=== PATIENT | female | born 1935 | race Caucasian/White ===

== ENCOUNTER 2017-10-08 11:57 | Emergency (ER) | payer MEDICAID ==
[~2017-10-08] VITALS: Ht 144.8 cm; Wt 46.3 kg
[2017-10-08 12:08] VITALS: BP 123/58
--- NOTE | 2017-10-08 12:19 | NUR ---
pt to lobby awaiting available room with son and in wheelchair.
--- NOTE | 2017-10-08 12:43 | NUR ---
pt brought in via w/c and taken to bed 1 at this time.
--- NOTE | 2017-10-08 12:53 | NUR ---
81 yo f bib son with c/o intermittent diarrhea x 3 weeks. Referred by pcp, Shady TREVIÑO, today for blood work. Patient marlo any abdomen pain or fevers. pt aaox4. gcs 15. cms intact. rr even and unlabored. lungs clear. abd soft, non-tender. er md garcia notified. pt needs met. safety prevautions in place. will continue to monitor.
[2017-10-08] MEDS ORDERED: NACL 0.9% 1,000 ML IV SCH (13:46)
[2017-10-08] MEDS ORDERED: MORPHINE SULFATE 2 MG/ML SYR IVP ONE (13:50)
--- NOTE | 2017-10-08 13:58 | NUR ---
pt to ct scan at this time via [facility].
[2017-10-08 14:26] LABS: BASOPHILS # (AUTO) 0.1 K/uL (0.00-0.22); BASOPHILS % (AUTO) 1.8 % (0.0-2.0); EOSINOPHILS # (AUTO) 0.1 K/uL (0-0.4); EOSINOPHILS % (AUTO) 3.8 % (0.0-4.0); HEMATOCRIT 35.2 % (36-48); HEMOGLOBIN 11.7 g/dL (12.0-16.0); LYMPHOCYTES # (AUTO) 1.5 K/uL (2.5-16.5); MEAN CORPUSCULAR HEMOGLOBIN 30 pg (27-31); MEAN CORPUSCULAR HGB CONC 33 g/dL (33-37); MEAN CORPUSCULAR VOLUME 88.8 fL (80-94); MONOCYTES # (AUTO) 0.2 K/uL (0.8-1.0); MONOCYTES % (AUTO) 5.8 % (1.7-9.3); NEUTROPHILS # (AUTO) 1.6 K/uL (1.8-7.7); NEUTROPHILS % (AUTO) 45.6 % (42.2-75.2); PLATELET COUNT (AUTO) 168 K/uL (140-450); RED BLOOD CELL COUNT(AUTO) 3.96 MIL/uL (4.20-5.40); RED CELL DISTRIBUTION WIDTH 15.5 % (11.6-13.7); WHITE BLOOD COUNT (AUTO) 3.5 K/uL (4.8-10.8)
[2017-10-08 14:40] LABS: APPEARANCE,URINE CLEAR (CLEAR); COLOR,URINE YELLOW (YELLOW); PH,URINE 5.5 (5.0-9.0); UGLUCOSE NEGATIVE (NEGATIVE)
[2017-10-08 14:41] LABS: BILIRUBIN,URINE 1+ (NEGATIVE); BLOOD, URINE TRACE (NEGATIVE); LEUKOCYTE ESTERASE ,URINE NEGATIVE (NEGATIVE); NITRITE, URINE NEGATIVE (NEGATIVE)
--- NOTE | 2017-10-08 14:59 | NUR ---
pt resting comfortably in [facility] at this time. Son and DTR at bedside at this time. safety precautions in place. vss. will continue to monitor.
[2017-10-08 15:00] LABS: RBC,URINE 0-5 (RARE) /HPF (0-5); WBC,URINE 0-5 (RARE) /HPF (0-5)
[2017-10-08 15:00] LABS: CARBON DIOXIDE 28.3 mmol/L (21-32); CHLORIDE 104 mmol/L (98-107); POTASSIUM 4.3 mmol/L (3.5-5.1); SODIUM SERUM 139 mmol/L (136-145)
[2017-10-08 15:01] LABS: ASPARTATE AMINOTRANSFERASE 20 U/L (15-37); CREATININE 0.9 mg/dL (0.6-1.3); GLUCOSE 92 mg/dL (74-106); TOTAL BILIRUBIN 0.9 mg/dL (0.0-1.0); UREA NITROGEN, BLOOD 22 mg/dL (7-18)
[2017-10-08 15:02] LABS: ALBUMIN 3.8 g/dL (3.4-5.0); AMYLASE 62 U/L (25-115); LIPASE 62 U/L (73-393)
--- NOTE | 2017-10-08 15:41 | NUR ---
pt resting in [facility] at this time PARISH Vogel at bedside attempting to insert IV. Safety precautions in place. Pt to receive IV meds at this time.
--- NOTE | 2017-10-08 16:00 | NUR ---
pt resting in hospital [facility] at this time. vss. rr even and unlabored. family at bedside. safety precautions in place. will continue to monitor.
[2017-10-08 17:53] VITALS: BP 121/63
--- NOTE | 2017-10-08 17:53 | NUR ---
Patient discharged with v/s stable. Written and verbal after care instructions given and explained. Patient alert, oriented and verbalized understanding of instructions. Wheel Chair Assisted with by caregiver. All questions addressed prior to discharge. ID band removed. Patient advised to follow up with PMD. Rx of Lactulose given. Patient educated on indication of medication including possible reaction and side effects. Opportunity to ask questions provided and answered.
== END 2017-10-08 17:53 | disposition home or self-care (01) ==
LOC: MED 11:57
DX: E86.0 Dehydration (principal); K56.41 Fecal impaction; R19.7 Diarrhea, unspecified; K59.8 Other specified functional intestinal disorders; F99 Mental disorder, not otherwise specified
CPT/HCPCS: 36415; 74176; 76705; 80053; 81001; 82150; 83690; 85025; 96361; 96374; 99285; J2270; J7030; Q0092

== ENCOUNTER 2018-01-02 13:03 | Emergency (ER) | payer MEDICAID ==
[~2018-01-02] VITALS: Ht 144.8 cm; Wt 46.3 kg
[2018-01-02 13:15] VITALS: BP 91/54
[2018-01-02] MEDS: HYDROcodone/APAP 5/325 MG 1 TAB TAB PO ONE (15:39)
[2018-01-02 15:55] LABS: BASOPHILS % (AUTO) 0.5 % (0.0-2.0); EOSINOPHILS % (AUTO) 0.5 % (0.0-4.0); HEMATOCRIT 34.4 % (36-48); HEMOGLOBIN 11.2 g/dL (12.0-16.0); LYMPHOCYTES # (AUTO) 0.9 K/uL (2.5-16.5); LYMPHOCYTES % (AUTO) 17.5 % (20.5-51.1); MEAN CORPUSCULAR HEMOGLOBIN 30 pg (27-31); MEAN CORPUSCULAR HGB CONC 33 g/dL (33-37); MEAN CORPUSCULAR VOLUME 91.7 fL (80-94); MONOCYTES # (AUTO) 0.3 K/uL (0.8-1.0); MONOCYTES % (AUTO) 5.7 % (1.7-9.3); NEUTROPHILS # (AUTO) 3.8 K/uL (1.8-7.7); NEUTROPHILS % (AUTO) 75.8 % (42.2-75.2); PLATELET COUNT (AUTO) 216 K/uL (140-450); RED BLOOD CELL COUNT(AUTO) 3.75 MIL/uL (4.20-5.40); RED CELL DISTRIBUTION WIDTH 15.4 % (11.6-13.7)
[2018-01-02 16:02] LABS: PROTHROMBIN TIME 11.1 secs (10.8-13.4)
[2018-01-02 16:03] LABS: ANION GAP 9.5 (8-16); CARBON DIOXIDE 28.7 mmol/L (21-32); CHLORIDE 105 mmol/L (98-107); POTASSIUM 4.2 mmol/L (3.5-5.1); SODIUM SERUM 139 mmol/L (136-145)
[2018-01-02 16:04] LABS: CREATININE 0.8 mg/dL (0.6-1.3); GLUCOSE 87 mg/dL (74-106); UREA NITROGEN, BLOOD 18 mg/dL (7-18)
[2018-01-02 16:08] LABS: ALBUMIN 3.6 g/dL (3.4-5.0); ASPARTATE AMINOTRANSFERASE 14 U/L (15-37); TOTAL BILIRUBIN 0.6 mg/dL (0.0-1.0)
[2018-01-02 17:20] VITALS: BP 100/55
== END 2018-01-02 17:20 | disposition home or self-care (01) ==
LOC: MED 13:03
DX: S92.001A Unspecified fracture of right calcaneus, initial encounter for closed fracture (principal); I48.91 Unspecified atrial fibrillation; Z86.73 Personal history of transient ischemic attack (TIA), and cerebral infarction without residual deficits; W01.0XXA Fall on same level from slipping, tripping and stumbling without subsequent striking against object, initial encounter; Y93.89 Activity, other specified; Y92.89 Other specified places as the place of occurrence of the external cause; Y99.8 Other external cause status
CPT/HCPCS: 70450; 71045; 73030; 73562; 80053; 84484; 85025; 85610; 85730; 93005; 99285; Q0092

== ENCOUNTER 2018-06-29 22:06 | Inpatient (IN) | payer OTHER, MEDICAID ==
[~2018-06-29] VITALS: Ht 147.3 cm; Wt 44.0 kg
--- NOTE | 2018-06-29 22:07 | NUR ---
PT ANNAMARIE BLS. TAKEN TO BED 3
[2018-06-29 22:11] VITALS: BP 110/54
--- NOTE | 2018-06-29 22:20 | NUR ---
RECEIEVED REPORT FROM CHENG EMT. PT REPORTS PAIN 10/10 TO RIGHT ARM. REPORTS HEARING CRACK AFTER HANDING A THERMOS. PT SON AT BEDSIDE. AOX4 ABLE TO VERBALIZE NEEDS. LUNG SOUNDS CLEAR BILAT. BED IN LOWEST POSITION. WILL CONTINUE TO MONTOR.
--- NOTE | 2018-06-29 22:22 | NUR ---
Dr. Vazquez evaluating patient at bedside.
[2018-06-29] MEDS ORDERED: fentaNYL 0.05 MG/ML VIAL NS ONE (22:30)
[2018-06-29] MEDS ORDERED: fentaNYL 0.05 MG/ML VIAL IVP ONE (22:40)
[2018-06-29] MEDS ORDERED: KETOROLAC 30 MG/ML VIAL IVP ONE (23:45)
[2018-06-30] MEDS ORDERED: fentaNYL 0.05 MG/ML VIAL IVP ONE (00:15)
--- NOTE | 2018-06-30 00:36 | NUR ---
X-Ray at bedside.
[2018-06-30] MEDS ORDERED: NACL 0.9% 1,000 ML IV SCH (00:49)
[2018-06-30] MEDS ORDERED: ACETAMINOPHEN 325 MG TAB PO PRN (00:50)
[2018-06-30] MEDS ORDERED: HYDROcodone/APAP 5/325 MG 1 TAB TAB PO PRN (00:50)
[2018-06-30] MEDS ORDERED: ONDANSETRON 4 MG/2 ML VIAL IM/IVP PRN (00:50)
[2018-06-30] MEDS ORDERED: DOCUSATE SODIUM 100 MG GELCAP PO PRN (00:50)
[2018-06-30] MEDS ORDERED: MORPHINE SULFATE 2 MG/ML SYR IVP PRN (00:50)
--- NOTE | 2018-06-30 00:50 | NUR ---
X-Ray at bedside.
[2018-06-30 01:19] LABS: BASOPHILS % (AUTO) 0.8 % (0.0-2.0); EOSINOPHILS % (AUTO) 0.7 % (0.0-4.0); HEMATOCRIT 35.6 % (36-48); HEMOGLOBIN 11.8 g/dL (12.0-16.0); MEAN CORPUSCULAR HEMOGLOBIN 30 pg (27-31); MEAN CORPUSCULAR HGB CONC 33 g/dL (33-37); MEAN CORPUSCULAR VOLUME 91.2 fL (80-94); MONOCYTES # (AUTO) 0.2 K/uL (0.8-1.0); MONOCYTES % (AUTO) 6.6 % (1.7-9.3); NEUTROPHILS # (AUTO) 2.1 K/uL (1.8-7.7); NEUTROPHILS % (AUTO) 61.9 % (42.2-75.2); PLATELET COUNT (AUTO) 202 K/uL (140-450); RED CELL DISTRIBUTION WIDTH 14.9 % (11.6-13.7); WHITE BLOOD COUNT (AUTO) 3.4 K/uL (4.8-10.8)
[2018-06-30 01:36] LABS: ANION GAP 13.3 (8-16); CARBON DIOXIDE 27.3 mmol/L (21-32); CHLORIDE 101 mmol/L (98-107); CREATININE 0.7 mg/dL (0.6-1.3); GLUCOSE 94 mg/dL (74-106); POTASSIUM 4.6 mmol/L (3.5-5.1); SODIUM SERUM 137 mmol/L (136-145); UREA NITROGEN, BLOOD 18 mg/dL (7-18)
--- NOTE | 2018-06-30 01:41 | NUR ---
ADMITTED A 82 Y/O FEMALE FROM WITH CHIEF COMPLAINT OF RIGHT SHOULDER PAIN VIA [facility]. V/S TAKEN WNL.RESPIRATION EVEN AND UNLABORED.TRANSFERRED PATIENT FROM [facility] TO BED WITH 2 PEOPLE ASSIST WITH RIGHT SHOULDER SLING IN PLACE. SKIN INTACT. FALL PRECAUTION APPLIED. PERSONAL BELONGINGS AT BEDSIDE. CALL LIGHT WITHIN REACH. PATIENT ABLE TO RECOGNIZES HER NEEDS, AND FOLLOW SIMPLE COMMANDS. BLANKET PROVIDED FOR COMFORT. ROUTINE ADMISSION CARE DONE AND CARRY OUT ORDERS. NO S/S OF DISTRESS. DENIES PAIN. ALL NEEDS ATTENDED. WILL CONTINUE TO MONITOR.
[2018-06-30 01:42] LABS: ALBUMIN 3.6 g/dL (3.4-5.0); ASPARTATE AMINOTRANSFERASE 21 U/L (15-37); TOTAL BILIRUBIN 0.8 mg/dL (0.0-1.0)
--- NOTE | 2018-06-30 01:49 | NUR ---
PT TRANSFERED TO 121A. REPORT GIVEN TO MARLEEN FOR CONTINUITY OF CARE
[2018-06-30 01:53] LABS: PROTHROMBIN TIME 15.7 secs (10.8-13.4)
--- NOTE | 2018-06-30 02:00 | NUR ---
SEEN PATIENT RESTING ON BED. HOB ELEVATED. NO S/S OF DISTRESS NOTED. FALL PRECAUTION APPLIED. CALL LIGHT WITHIN REACH.
[2018-06-30 02:05] LABS: CHOL/HDL RATIO 1.4 (1-4.5); MAGNESIUM 2.1 mg/dL (1.8-2.4); PHOSPHORUS 3.8 mg/dL (2.5-4.9); THYROID STIMULATING HORMONE 1.19 uIU/mL (0.34-3.74)
[2018-06-30] MEDS ORDERED: ALBUTEROL SULFATE/IPRATROPIU 3 ML SOL IH PRN (03:00)
[2018-06-30] MEDS ORDERED: OXYB5TAB PO (03:09)
[2018-06-30] MEDS ORDERED: ROPI0.5T40 PO (03:09)
[2018-06-30] MEDS ORDERED: METH5TAB PO (03:09)
[2018-06-30] MEDS ORDERED: ATOR10TA PO (03:09)
[2018-06-30] MEDS ORDERED: RIVA20TA PO (03:09)
[2018-06-30] MEDS ORDERED: AMIO200T59 PO (03:09)
--- NOTE | 2018-06-30 04:00 | NUR ---
SEEN PATIENT ASLEEP. NO S/S OF DISTRESS NOTED. DENEIS PAIN. ALL NEEDS ATTENDED.
[2018-06-30] MEDS: DEXT 5% / NACL 0.45% 1,000 ML IV SCH ×3 (04:50→20:03)
[2018-06-30] MEDS: PIPER/TAZO 3.375GM/D5W PREMIX 50 ML IV SCH ×3 (05:17→20:03)
[2018-06-30] MEDS ORDERED: PIPERACILLIN/TAZOBACTAM 3.375 GM VIAL IV ONE (05:19)
[2018-06-30 07:22] LABS: BASOPHILS % (AUTO) 0.7 % (0.0-2.0); EOSINOPHILS % (AUTO) 0.6 % (0.0-4.0); HEMATOCRIT 33.9 % (36-48); HEMOGLOBIN 11.3 g/dL (12.0-16.0); LYMPHOCYTES # (AUTO) 1.2 K/uL (2.5-16.5); LYMPHOCYTES % (AUTO) 33.2 % (20.5-51.1); MEAN CORPUSCULAR HEMOGLOBIN 31 pg (27-31); MEAN CORPUSCULAR HGB CONC 34 g/dL (33-37); MEAN CORPUSCULAR VOLUME 91.2 fL (80-94); MONOCYTES # (AUTO) 0.3 K/uL (0.8-1.0); MONOCYTES % (AUTO) 7.5 % (1.7-9.3); PLATELET COUNT (AUTO) 175 K/uL (140-450); RED BLOOD CELL COUNT(AUTO) 3.71 MIL/uL (4.20-5.40); RED CELL DISTRIBUTION WIDTH 14.9 % (11.6-13.7); WHITE BLOOD COUNT (AUTO) 3.5 K/uL (4.8-10.8)
--- NOTE | 2018-06-30 07:25 | NUR ---
REPORT GIVEN TO AM SHIFT RN AT BEDSIDE. CALL LIGHT WITHIN REACH. PATIENT IN STABLE CONDITION.
--- NOTE | 2018-06-30 07:26 | NUR ---
RECEIVED REPORT FROM INSTRUMENT MAKER APPRENTICE NURSE. PATIENT LYING DOWN IN BED SLEEPING, AROUSABLE BY VOICE. NO DISTRESS NOTED. FLACC 0 RESPIRATIONS EVEN, UNLABORED, ON ROOM AIR. RESPIRATIONS EVEN, UNLABORED, ON ROOM AIR. RIGHT ARM SLING NOTED. AAOX3, CALM, COOPERATIVE, SPEAKS FARSI. SKIN COLOR APPROPRIATE TO ETHNICITY, WARM TO TOUCH. SKIN INTACT. REVIEWED PLAN OF CARE WITH PATIENT. REINFORCEMENT NEEDED. SAFETY MEASURES IN PLACE, CALL LIGHT WITHIN REACH. WILL CONTINUE TO MONITOR.
[2018-06-30 07:49] LABS: ANION GAP 11.1 (8-16); CARBON DIOXIDE 28.4 mmol/L (21-32); CHLORIDE 103 mmol/L (98-107); CREATININE 0.7 mg/dL (0.6-1.3); GLUCOSE 83 mg/dL (74-106); POTASSIUM 4.5 mmol/L (3.5-5.1); SODIUM SERUM 138 mmol/L (136-145); UREA NITROGEN, BLOOD 18 mg/dL (7-18)
[2018-06-30 08:00] VITALS: BP 150/66
[2018-06-30] MEDS: METHIMAZOLE 5 MG TAB PO SCH (08:56)
[2018-06-30] MEDS: LACTOBACILLUS RHAMNOSUS GG 1 EACH CAP PO SCH (08:56)
[2018-06-30] MEDS: ATORVASTATIN 20 MG TAB PO SCH (08:56)
[2018-06-30] MEDS ORDERED: RIVAROXABAN 10 MG TAB PO SCH (09:00)
[2018-06-30] MEDS: OXYBUTYNIN 5 MG TAB PO SCH (09:03)
[2018-06-30] MEDS: AMIODARONE 200 MG TAB PO SCH (09:03)
--- NOTE | 2018-06-30 09:10 | NUR ---
PATIENT LYING DOWN IN BED, NO DISTRESS NOTED. FLACC 8, MORPHINE GIVEN. SON AT BEDSIDE TALKING WITH PATIENT. SCHEDULED MEDICATIONS DUE GIVEN. WILL CONTINUE TO MONITOR.
[2018-06-30] MEDS: rOPINIRole 0.25 MG TAB PO SCH ×4 (09:14→21:02)
--- NOTE | 2018-06-30 11:30 | NUR ---
PATIENT LYING DOWN IN BED, SON AT BEDSIDE. NO DISTRESS NOTED. CONDITION UNCHANGED. WILL CONTINUE TO MONITOR.
--- NOTE | 2018-06-30 14:00 | NUR ---
ASSISTED UX DEVELOPER IN CLEANING AND REPOSITIONING PATIENT. WILL CONTINUE TO MONITOR.
[2018-06-30 16:00] VITALS: BP 100/58
--- NOTE | 2018-06-30 16:00 | NUR ---
PT RESTING IN BED WITH NO SIGNS OF SOB NOTED AT THIS TIME. WILL CONTINUE TO MONITOR.
--- NOTE | 2018-06-30 17:11 | NUR ---
PATIENT LYING DOWN IN BED SLEEPING, AROUSABLE BY VOICE. NO DISTRESS NOTED. CONDITION UNCHANGED. SCHEDULED MEDICATIONS DUE GIVEN. WILL CONTINUE TO MONITOR.
--- NOTE | 2018-06-30 19:23 | NUR ---
GAVE REPORT TO MATHEMATICS TECHNICIAN NURSE FOR CONTINUITY OF CARE. PATIENT IN STABLE CONDITION.
--- NOTE | 2018-06-30 19:24 | NUR ---
RECEIVED REPORT FROM DAY SHIFT NURSE JOHNNY-RN AT BEDSIDE. PT AOX3- SPEAKS FARSEY-FRENCH, ON ROOM AIR WITH LEFT AC #20G. RIGHT SUBLUXATION ROTATOR CUFF IN SLING- MINIMIZE TURNING; USE BEDPAN. DISCUSSED PLAN OF CARE WITH SON WANDA AND VERBALIZED UNDERSTANDING. NO S/S OF RESPIRATORY DISTRESS OR DISCOMFORT NOTED AT THIS TIME. BED IN LOWEST POSITION, BED BREAKS ON, BOTH SIDE RAILS UP AND BOTH FALL AND ASPIRATION PRECAUTIONS IN PLACE. BEDSIDE TABLE AND CALL LIGHT ARE WITHIN REACH. WILL CONTINUE TO MONITOR.
[2018-06-30 20:00] VITALS: BP 114/48
--- NOTE | 2018-06-30 20:00 | NUR ---
VITAL SIGNS TAKEN AND TOLERATED WELL. NO S/S OF RESPIRATORY DISTRESS OR DISCOMFORT NOTED AT THIS TIME. WILL CONTINUE TO MONITOR.
--- NOTE | 2018-06-30 21:02 | NUR ---
USED BLUE PHONE TO COMMUNICATE WITH PT HOWEVER FOOD GENERAL MANAGER WAS UNABLE TO UNDERSTAND PT- ID # [id number]. CALLED PT SON WANDA AND WAS TOLD THAT PT WAS C/O RESTLESS LEG SYNDROME. SPOKE WITH DR. EUCEDA AND WAS ABLE TO CHANGE FREQUENCY OF REQUIP TO Q8H. MEDICATION WAS GIVEN AND PT TOLERATED WELL. NO S/S OF RESPIRATORY DISTRESS OR DISCOMFORT NOTED AT THIS TIME. WILL CONTINUE TO MONITOR.
--- NOTE | 2018-06-30 22:00 | NUR ---
PT SLEEPING IN BED. NO S/S OF RESPIRATORY DISTRESS OR DISCOMFORT NOTED AT THIS TIME. WILL CONTINUE TO MONITOR.
[2018-07-01] VITALS: BP 128/59
--- NOTE | 2018-07-01 | NUR ---
VITAL SIGNS TAKEN AND TOLERATED WELL. ASSISTED PT TO USE BEDPAN AND COLLECTED URINE SAMPLE. NO S/S OF RESPIRATORY DISTRESS OR DISCOMFORT NOTED AT THIS TIME. WILL CONTINUE TO MONITOR.
--- NOTE | 2018-07-01 02:00 | NUR ---
ASSISTED PT WITH PERINEAL CARE AFTER USING BEDPAN FOR URINE. PT TOLERATED WELL. NO S/S OF RESPIRATORY DISTRESS OR DISCOMFORT NOTED AT THIS TIME. WILL CONTINUE TO MONITOR.
[2018-07-01 02:35] LABS: APPEARANCE,URINE CLEAR (CLEAR); BILIRUBIN,URINE NEGATIVE (NEGATIVE); BLOOD, URINE TRACE-I (NEGATIVE); COLOR,URINE YELLOW (YELLOW); LEUKOCYTE ESTERASE ,URINE TRACE (NEGATIVE); NITRITE, URINE NEGATIVE (NEGATIVE); PH,URINE 5.5 (5.0-9.0); UGLUCOSE NEGATIVE (NEGATIVE)
[2018-07-01 02:41] LABS: RBC,URINE 0-5 /HPF (0-5)
--- NOTE | 2018-07-01 04:00 | NUR ---
ASSISTED PT TO USE BEDPAN FOR URINE. SCHEDULED MEDICATION GIVEN AND TOLERATED WELL. NO S/S OF RESPIRATORY DISTRESS OR DISCOMFORT NOTED AT THIS TIME. WILL CONTINUE TO MONITOR.
[2018-07-01] MEDS: rOPINIRole 0.25 MG TAB PO SCH ×2 (04:09→12:33)
[2018-07-01] MEDS: PIPER/TAZO 3.375GM/D5W PREMIX 50 ML IV SCH ×2 (04:09→12:33)
--- NOTE | 2018-07-01 06:00 | NUR ---
PT RESTING IN BED. NO S/S OF RESPIRATORY DISTRESS OR DISCOMFORT NOTED AT THIS TIME. WILL CONTINUE TO MONITOR.
[2018-07-01 07:14] LABS: BASOPHILS % (AUTO) 0.6 % (0.0-2.0); EOSINOPHILS % (AUTO) 0.5 % (0.0-4.0); HEMATOCRIT 34.8 % (36-48); HEMOGLOBIN 11.8 g/dL (12.0-16.0); LYMPHOCYTES # (AUTO) 1.1 K/uL (2.5-16.5); LYMPHOCYTES % (AUTO) 24.5 % (20.5-51.1); MEAN CORPUSCULAR HEMOGLOBIN 31 pg (27-31); MEAN CORPUSCULAR HGB CONC 34 g/dL (33-37); MEAN CORPUSCULAR VOLUME 91.2 fL (80-94); MONOCYTES # (AUTO) 0.2 K/uL (0.8-1.0); MONOCYTES % (AUTO) 5.1 % (1.7-9.3); NEUTROPHILS % (AUTO) 69.3 % (42.2-75.2); PLATELET COUNT (AUTO) 194 K/uL (140-450); RED BLOOD CELL COUNT(AUTO) 3.82 MIL/uL (4.20-5.40); RED CELL DISTRIBUTION WIDTH 14.6 % (11.6-13.7); WHITE BLOOD COUNT (AUTO) 4.3 K/uL (4.8-10.8)
--- NOTE | 2018-07-01 07:15 | NUR ---
RECEIVED PT REPORT FROM NEGATIVE RETOUCHER NURSE TREE-PARISH AT BEDSIDE. PT AAOX3, SPEAKS FARSI-WOLOF, ON ROOM AIR WITH LEFT AC #20G, INFUSING WELL, ASYMPTOMATIC. RIGHT SUBLUXATION ROTATOR CUFF IN SLING- MINIMIZE TURNING. USES BEDPAN. NO S/S OF RESPIRATORY DISTRESS OR DISCOMFORT NOTED AT THIS TIME. FLACC 0. BED IN LOWEST POSITION, BED BREAKS ON, BOTH SIDE RAILS UP. FALL AND ASPIRATION PRECAUTIONS IN PLACE. BEDSIDE TABLE AND CALL LIGHT ARE WITHIN REACH. WILL CONTINUE TO MONITOR.
--- NOTE | 2018-07-01 07:27 | NUR ---
ENDORSED PT CARE TO DAY SHIFT NURSE NATHALY FOR CONTINUITY OF CARE.
[2018-07-01 07:51] LABS: PROTHROMBIN TIME 11.4 secs (10.8-13.4)
[2018-07-01 08:00] VITALS: BP 126/60
[2018-07-01 08:00] LABS: ANION GAP 12.3 (8-16); CHLORIDE 103 mmol/L (98-107); CREATININE 0.9 mg/dL (0.6-1.3); GLUCOSE 101 mg/dL (74-106); POTASSIUM 4.3 mmol/L (3.5-5.1); SODIUM SERUM 137 mmol/L (136-145); UREA NITROGEN, BLOOD 14 mg/dL (7-18)
--- NOTE | 2018-07-01 08:05 | NUR ---
RECEIVED PATIENT ON ROOM AIR, PULSE OX SAT 95%. PATIENT DENIES SOB. NO RESPIRATORY DISTRESS NOTED AT THIS TIME. WILL CONTINUE TO MONITOR.
--- NOTE | 2018-07-01 08:30 | NUR ---
PATIENT HAS BEEN SCREENED AND CATEGORIZED MODERATE NUTRITION RISK. PATIENT WILL BE SEEN WITHIN 3-5 DAYS OF ADMISSION. 07/02/18[address]
[2018-07-01] MEDS ORDERED: RIVAROXABAN 15 MG TAB PO SCH (09:00)
[2018-07-01 09:34] LABS: T4 (THYROXINE) 7.5 ug/dL (4.5-12.0)
[2018-07-01] MEDS: METHIMAZOLE 5 MG TAB PO SCH (10:04)
[2018-07-01] MEDS: ATORVASTATIN 20 MG TAB PO SCH (10:04)
[2018-07-01] MEDS: LACTOBACILLUS RHAMNOSUS GG 1 EACH CAP PO SCH (10:04)
[2018-07-01] MEDS: OXYBUTYNIN 5 MG TAB PO SCH (10:04)
[2018-07-01] MEDS: AMIODARONE 200 MG TAB PO SCH (10:05)
--- NOTE | 2018-07-01 10:10 | NUR ---
SCHEDULED MEDS GIVEN, YAM CURER PHONE USED, YAM CURER #[id number]. PT VERBALIZED UNDERSTANDING AND FURTHER QUESTIONS. PT SWALLOWED PILL ONE BY ONE. NO DIFFICULTIES NOTED.
[2018-07-01] MEDS: DEXT 5% / NACL 0.45% 1,000 ML IV SCH (10:58)
--- NOTE | 2018-07-01 12:00 | NUR ---
PT GETTING ANXIOUS AND TRYING TO PULL THE IV OUT. IV SITE IS DRY AND INTACT, ASYMPTOMATIC. MADE DR HERNANDES AWARE, DR HERNANDES TALKED TO PT. PT C/O HUNGER. PROVIDED PT WITH PUDDING AND LUNCH TRAY. DISTRACTION MEASURE WORKS FINE AT THIS TIME. WILL TRY ATIVAN IF PT STILL PULLS IV CATH.
[2018-07-01] MEDS ORDERED: LORazepam 2 MG/ML VIAL IM/IVP PRN (12:05)
[2018-07-01] MEDS ORDERED: ACET-1182 PO (13:54)
[2018-07-01] MEDS ORDERED: ACET-9525 PO (13:54)
[2018-07-01] MEDS ORDERED: DOCU-299 PO (13:54)
--- NOTE | 2018-07-01 15:01 | NUR ---
PT REFUSED SCD AT THIS TIME. EXPLAINED THE RISK AND BENEFITS, PT STILL REFUSING, PT'S SON AT BEDSIDE. PT'S SON WANTS TO DR HERNANDES. CALLED DR HERNANDES AND NOTIFIED HER.
[2018-07-01] MEDS ORDERED: AMOX-999 PO (15:29)
[2018-07-01] MEDS ORDERED: LACT10CA1 PO (15:29)
[2018-07-01 16:00] VITALS: BP 96/55
--- NOTE | 2018-07-01 18:00 | NUR ---
PT'S SON CAME TO SOFT IRON INSPECTOR PT. ACCORDING TO PT'S SON, PT HAS AN IMMIGRATION APPT TOMORROW MORNING. PT AND HER SON DECIDED TO LEAVE AMA. DR HERNANDES HAS ALREADY TALKED TO THE PT AND HER SON ABOUT RISK OF LEAVING AMA. THEY VERBALIZED UNDERSTANDING. PT'S SON SIGNED THE FORM. PT SON ALREADY MADE APPT WITH PT'S PCP FOR TOMORROW AFTERNOON. PER DR HERNANDES'S REQUEST, PROVIDED PT WITH ALL IMAGING REPORTS AND RX FOR PAIN. AND OTHER RX SENT TO [facility] ON [address]. PT'S SON IS AWARE. IV DC'D, TIP INTACT, PRESSURE APPLIED. WRIST BANDS REMOVED. HELPED PT DRESSED. PT DID NOT HAVE SHIRT, PROVIDED ORANGE GOWN. PT WAS TRANSFERRED TO HER OWN WHEELCHAIR AND LEFT WITH HER SON WITH ALL HER BELONGINGS. Addendum: 07/01/18 at 1857 by Abdifatah Maritnez RN PT'S SHIRT WAS CUT UP. PT'S SON THREW IT AWAY IN THE TRASH BIN.
--- NOTE | 2018-07-01 18:57 | NUR ---
KAIDEN FILED, Unique Id: [id number]
[2018-07-02 10:25] LABS: TRANSFERRIN 230 mg/dL (200-370)
[2018-07-02 15:11] LABS: FERRITIN 108 ng/mL (15-150); FOLIC ACID > 20.00 ng/mL (>3.0)
== END 2018-07-01 18:30 | disposition left against medical advice (07) | DRG 562 ==
LOC: MED 22:06 → MTU 06-30 00:54
PROVIDERS: ADMIT General Practice; ATTEND General Practice
PROC: 0RSJXZZ Reposition Right Shoulder Joint, External Approach (ICD-10-PCS; principal; 2018-06-30)
DX: M24.411 Recurrent dislocation, right shoulder (principal); J69.0 Pneumonitis due to inhalation of food and vomit; M19.90 Unspecified osteoarthritis, unspecified site; M81.0 Age-related osteoporosis without current pathological fracture; I48.91 Unspecified atrial fibrillation; G25.81 Restless legs syndrome; Z96.653 Presence of artificial knee joint, bilateral; E78.5 Hyperlipidemia, unspecified; R32 Unspecified urinary incontinence; E05.90 Thyrotoxicosis, unspecified without thyrotoxic crisis or storm; D64.9 Anemia, unspecified; Z79.01 Long term (current) use of anticoagulants; Z86.73 Personal history of transient ischemic attack (TIA), and cerebral infarction without residual deficits; Z53.21 Procedure and treatment not carried out due to patient leaving prior to being seen by health care provider
CPT/HCPCS: 36415; 71045; 73020; 73030; 73200; 80048; 80053; 81001; 82150; 82607; 82728; 82746; 83036; 83540; 83690; 83735; 83880; 84100; 84436; 84443; 84484; 85025; 85045; 85610; 85730; 86886; 86900; 86901; 87081; 87086; 93005; 96374; 96375; 99285; J1885; J2270; J2543; J3010; J7030; J7060; Q0092

== ENCOUNTER 2021-12-12 01:55 | Inpatient (IN) | payer OTHER, MEDICAID ==
[~2021-12-12] VITALS: Ht 152.4 cm; Wt 47.6 kg
[~2021-12-12 01:55] MED LIST: ACET-1182 PO; AMIO200T66 PO; ATOR10TA PO; DOCU-299 PO; HYDR-5080 PO; METO25TA PO; OXYB5TAB27 PO; [UNRECOGNIZED DRUG - CODE] PO; [UNRECOGNIZED DRUG - CODE] TP
[2021-12-12 02:23] VITALS: BP 91/21
[2021-12-12] MEDS ORDERED: DEXAMETHASONE 4 MG/ML VIAL IVP ONE (02:30)
[2021-12-12] MEDS ORDERED: AZITHROMYCIN 500 MG in DEXTROSE 5% 250 ML IV ONE (02:30)
[2021-12-12] MEDS ORDERED: VANCOMYCIN 1,000 MG in DEXTROSE 5% 250 ML IV ONE (02:50)
[2021-12-12] MEDS ORDERED: PIPERACILLIN/TAZOBACTAM 3.375 GM in DEXTROSE 5% 50 ML IV ONE (02:50)
--- NOTE | 2021-12-12 03:00 | NUR ---
SWABBED PT FOR JASS AND INFLUENZA. SENT TO LAB AND RECEIVED BY [employer].
--- NOTE | 2021-12-12 03:02 | NUR ---
pt has low BP. ER MD aware. pt currently not experiencing any hypotensive sx. pt aaox4 and responding to questions.
[2021-12-12] MEDS ORDERED: PIPERACILLIN/TAZOBACTAM 3.375 GM VIAL IV ONE (03:05)
--- NOTE | 2021-12-12 03:11 | NUR ---
ER MD at bedside speaking about code status of patient.
[2021-12-12] MEDS ORDERED: OSELTAMIVIR PHOSPHATE 6 MG/ML SUSPENSION PO ONE (04:00)
[2021-12-12] MEDS ORDERED: VANCOMYCIN 1,000 MG VIAL ONE (04:04)
[2021-12-12 04:08] LABS: BASOPHILS % (AUTO) 0.3 % (0.0-2.0); HEMATOCRIT 39.8 % (36-48); LYMPHOCYTES # (AUTO) 1.7 K/uL (2.5-16.5); LYMPHOCYTES % (AUTO) 41.3 % (20.5-51.1); MEAN CORPUSCULAR HEMOGLOBIN 28 pg (27-31); MEAN CORPUSCULAR HGB CONC 33 g/dL (33-37); MEAN CORPUSCULAR VOLUME 85.8 fL (80-94); MONOCYTES # (AUTO) 0.4 K/uL (0.8-1.0); MONOCYTES % (AUTO) 8.9 % (1.7-9.3); NEUTROPHILS # (AUTO) 2.1 K/uL (1.8-7.7); NEUTROPHILS % (AUTO) 49.5 % (42.2-75.2); PLATELET COUNT (AUTO) 152 K/uL (140-450); RED BLOOD CELL COUNT(AUTO) 4.64 MIL/uL (4.20-5.40); RED CELL DISTRIBUTION WIDTH 16.1 % (11.6-13.7); WHITE BLOOD COUNT (AUTO) 4.2 K/uL (4.8-10.8)
[2021-12-12 04:54] LABS: ALBUMIN 3.6 g/dL (3.4-5.0); ANION GAP 16.2 (8-16); ASPARTATE AMINOTRANSFERASE 62 U/L (15-37); CHLORIDE 105 mmol/L (98-107); CREATININE 1.1 mg/dL (0.6-1.3); GLUCOSE 124 mg/dL (74-106); POTASSIUM 5.2 mmol/L (3.5-5.1); SODIUM SERUM 142 mmol/L (136-145); TOTAL BILIRUBIN 0.4 mg/dL (0.0-1.0); UREA NITROGEN, BLOOD 21 mg/dL (7-18)
--- NOTE | 2021-12-12 05:13 | NUR ---
Patient appears to be resting comfortably in bed- low fowlers with NC at 4L. Vital Signs stable at this moment. Respirations even and unlabored. no signs of distress noted. Safety measures are in place and attached to shake loader.
[2021-12-12] MEDS ORDERED: NACL 0.9% 1,500 ML IV ONE (05:30)
[2021-12-12] MEDS ORDERED: XAR10 PO (06:21)
--- NOTE | 2021-12-12 07:20 | NUR ---
Pt report given to Tara LUGO. Transfer of care at this time.
--- NOTE | 2021-12-12 08:07 | NUR ---
Patient noted to have existing wounds upon arrival to ER. Photos taken of wound and placed in chart. Physician informed.
--- NOTE | 2021-12-12 08:16 | NUR ---
son at bedside
[2021-12-12] MEDS ORDERED: DOCUSATE SODIUM 100 MG GELCAP PO PRN (08:30)
--- NOTE | 2021-12-12 08:47 | NUR ---
PATIENT HAS BEEN SCREENED AND CATEGORIZED MODERATE NUTRITION RISK. PATIENT WILL BE SEEN WITHIN 3-5 DAYS OF ADMISSION. 12/12/21-12/16/[address]
--- NOTE | 2021-12-12 08:49 | NUR ---
Patient will be admitted to care of Aida TREVIÑO. Admitted to [facility]. Will go to room 118. Belongings list completed. Report to Ramirez LUGO.
[2021-12-12] MEDS: RIVAROXABAN 10 MG TAB PO SCH ×2 (09:00→13:44)
[2021-12-12 10:00] VITALS: BP 105/76
[2021-12-12 10:20] LABS: ANION GAP 15.3 (8-16); CARBON DIOXIDE 27.4 mmol/L (21-32); CHLORIDE 105 mmol/L (98-107); GLUCOSE 101 mg/dL (74-106); POTASSIUM 5.7 mmol/L (3.5-5.1); SODIUM SERUM 142 mmol/L (136-145); UREA NITROGEN, BLOOD 22 mg/dL (7-18)
[2021-12-12] MEDS ORDERED: INSULIN REGULAR, HUMAN 100 UNIT/ML VIAL IVP SCH (11:40)
[2021-12-12] MEDS ORDERED: DEXTROSE 50% 50 ML SYR IVP SCH (11:40)
[2021-12-12 12:00] VITALS: BP 138/75
[2021-12-12] MEDS: DEXAMETHASONE 4 MG/ML VIAL IVP SCH (13:32)
[2021-12-12] MEDS: AMIODARONE 200 MG TAB PO SCH (13:33)
[2021-12-12] MEDS: ATORVASTATIN 20 MG TAB PO SCH (13:34)
[2021-12-12] MEDS: OXYBUTYNIN 5 MG TAB PO SCH (13:34)
[2021-12-12] MEDS: METOPROLOL 25 MG TAB PO SCH ×2 (13:36→20:32)
[2021-12-12] MEDS: methIMAzole 5 MG TAB PO SCH (13:37)
[2021-12-12] MEDS: ZINC SULF 220 MG CAP PO SCH (13:38)
[2021-12-12] MEDS: ASCORBIC ACID 500 MG TAB PO SCH (13:46)
[2021-12-12 16:00] VITALS: BP 126/70
[2021-12-12] MEDS ORDERED: remdesivir COMMUNICATION ORDER 1 EA MISC MC PRN (16:25)
[2021-12-12] MEDS: HYDROcodone/APAP 7.5/325 MG 1 TAB PO PRN ×2 (17:06→20:33)
[2021-12-12 18:10] LABS: ANION GAP 14.2 (8-16); CHLORIDE 107 mmol/L (98-107); CREATININE 0.6 mg/dL (0.6-1.3); GLUCOSE 120 mg/dL (74-106); POTASSIUM 4.2 mmol/L (3.5-5.1); SODIUM SERUM 141 mmol/L (136-145); UREA NITROGEN, BLOOD 19 mg/dL (7-18)
[2021-12-12] MEDS: OSELTAMIVIR PHOSPHATE 75 MG CAP PO SCH (20:33)
[2021-12-13] VITALS: BP 112/67
[2021-12-13 04:00] VITALS: BP 113/67
--- NOTE | 2021-12-13 07:30 | NUR ---
RECEIVED PATIENT FROM SASH CLAMP OPERATOR NURSE FOR CONTINUITY OF CARE. PT IS AOX3. RESPIRATIONS EVEN AND UNLABORED. ON 2L NC AND O2 SATURATION AT 98%. NO DISTRESS NOTED. SKIN IS WARM, DRY, INTACT. IV SITE ON RAC AND LFA 20G. SALINE LOCKED. INTACT AND PATENT. ABD IS SOFT, FLAT, NONDISTENDED. BOWEL SOUNDS ACTIVE IN ALL QUADRANTS. PT DENIES PAIN AT THE MOMENT. PLAN OF CARE DISCUSSED. SAFETY PRECAUTIONS IN PLACE. CALL LIGHT WITHIN REACH. BED IN LOW POSITION. WILL CONTINUE TO MONITOR.
[2021-12-13 07:33] LABS: ALBUMIN 3.1 g/dL (3.4-5.0); ANION GAP 11.5 (8-16); ASPARTATE AMINOTRANSFERASE 43 U/L (15-37); CARBON DIOXIDE 26.3 mmol/L (21-32); CHLORIDE 106 mmol/L (98-107); CREATININE 0.7 mg/dL (0.6-1.3); GLUCOSE 95 mg/dL (74-106); POTASSIUM 3.8 mmol/L (3.5-5.1); SODIUM SERUM 140 mmol/L (136-145); TOTAL BILIRUBIN 0.6 mg/dL (0.0-1.0); UREA NITROGEN, BLOOD 21 mg/dL (7-18)
[2021-12-13] MEDS ORDERED: remdesivir CLINICAL MONITORING 1 EA MISC MC PRN (07:40)
[2021-12-13] MEDS ORDERED: AZITHROMYCIN 500 MG in DEXTROSE 5% 250 ML IV SCH (07:55)
[2021-12-13 08:00] VITALS: BP 113/64
--- NOTE | 2021-12-13 10:02 | NUR ---
RECEIVED ON SUPPLEMENTAL OXYGEN AT 3 LPM VIA NC SATURATION 97% TITRATED FIO2 TO 2 LPM ZULY/RN NOTIFIED
[2021-12-13] MEDS: AZITHROMYCIN 500 MG in DEXTROSE 5% 250 ML IV SCH (10:04)
[2021-12-13] MEDS: AMIODARONE 200 MG TAB PO SCH (10:04)
[2021-12-13] MEDS: OXYBUTYNIN 5 MG TAB PO SCH (10:04)
[2021-12-13] MEDS: DEXAMETHASONE 4 MG/ML VIAL IVP SCH (10:04)
[2021-12-13] MEDS: METOPROLOL 25 MG TAB PO SCH ×2 (10:05→21:00)
[2021-12-13] MEDS: methIMAzole 5 MG TAB PO SCH (10:05)
[2021-12-13] MEDS: ATORVASTATIN 20 MG TAB PO SCH (10:05)
[2021-12-13] MEDS: OSELTAMIVIR PHOSPHATE 75 MG CAP PO SCH ×2 (10:05→22:59)
[2021-12-13] MEDS: ASCORBIC ACID 500 MG TAB PO SCH (10:06)
--- NOTE | 2021-12-13 10:07 | NUR ---
ALL SCHEDULED MEDS GIVEN. PT IS STABLE. NO DISTRESS NOTED. WILL CONTINUE TO MONITOR.
[2021-12-13] MEDS: ZINC SULF 220 MG CAP PO SCH (10:08)
[2021-12-13 12:00] VITALS: BP 98/70
[2021-12-13] MEDS ORDERED: REMDESIVIR. 200 MG in NACL 0.9% 100 ML IV SCH (12:00)
--- NOTE | 2021-12-13 12:05 | NUR ---
ALL SCHEDULED MEDS GIVEN. PT IS STABLE. NO DISTRESS NOTED. WILL CONTINUE TO MONITOR.
[2021-12-13 16:00] VITALS: BP 99/75
--- NOTE | 2021-12-13 16:10 | NUR ---
CHECKED ON PATIENT. PT IS STABLE. NO DISTRESS NOTED. WILL CONTINUE TO MONITOR.
[2021-12-13] MEDS ORDERED: DIGOXIN 0.25 MG/ML AMP IV SCH (18:30)
--- NOTE | 2021-12-13 19:40 | NUR ---
ENDORSED TO COMMERCIAL STRIPPER NURSE FOR CONTINUITY OF CARE. PT IS STABLE.
[2021-12-13 20:00] VITALS: BP 110/61
--- NOTE | 2021-12-13 21:00 | NUR ---
PT BP 110/61, REPORTED TO DR. MICHELE MD HOLD METOPROLOL FOR Tesaris.
[2021-12-14] VITALS: BP 112/60
[2021-12-14 04:00] VITALS: BP 119/68
[2021-12-14 07:06] LABS: ANION GAP 12.9 (8-16); CARBON DIOXIDE 26.2 mmol/L (21-32); CHLORIDE 107 mmol/L (98-107); CREATININE 0.7 mg/dL (0.6-1.3); GLUCOSE 107 mg/dL (74-106); POTASSIUM 4.1 mmol/L (3.5-5.1); SODIUM SERUM 142 mmol/L (136-145); UREA NITROGEN, BLOOD 27 mg/dL (7-18)
[2021-12-14 07:25] LABS: ALBUMIN 2.8 g/dL (3.4-5.0); ANION GAP 12.1 (8-16); ASPARTATE AMINOTRANSFERASE 43 U/L (15-37); CHLORIDE 107 mmol/L (98-107); CREATININE 0.7 mg/dL (0.6-1.3); GLUCOSE 106 mg/dL (74-106); POTASSIUM 4.1 mmol/L (3.5-5.1); SODIUM SERUM 142 mmol/L (136-145); TOTAL BILIRUBIN 0.4 mg/dL (0.0-1.0); UREA NITROGEN, BLOOD 27 mg/dL (7-18)
--- NOTE | 2021-12-14 07:45 | NUR ---
RECEIVED REPORT FROM NIGHTSHIFT NURSE GEORGINA FOR CONTINUITY OF CARE. PT IS CURRENTLY AWAKE, SPEAKS ONLY FARSI AND IS A/OX2 TO SELF AND PLACE. BREATHING IS EVEN, REGULAR AND UNLABORED ON 2L VIA NC. PT SKIN IS INTACT, AND IS INCONTINENT OF THE BOWEL AND BLADDER. IV SITE IS CLEAN, DRY, AND PATENT SALINE LOCK. NO SIGNS OF PAIN OR DISTRESS NOTED AT THIS TIME. DROPLET AND AIRBORNE ISOLATION PRECAUTIONS STILL IN EFFECT FOR COVID AND INFLUENZA A.
[2021-12-14 08:00] VITALS: BP 137/68
--- NOTE | 2021-12-14 09:00 | NUR ---
DIGOXIN REASSESSMENT FROM PRIOR SHIFT NOT DOCUMENTED BY PREVIOUS SHIFT.
[2021-12-14 09:15] LABS: FREE T4 (FREE THYROXINE) 0.99 ng/dL (0.76-1.46); THYROID STIMULATING HORMONE 0.3 uIU/mL (0.34-3.74)
--- NOTE | 2021-12-14 09:30 | NUR ---
PT VISUALLY ASSESSED, NO SIGNS OF PAIN OR DISTRESS NOTED.
[2021-12-14] MEDS: AZITHROMYCIN 500 MG in DEXTROSE 5% 250 ML IV SCH (10:01)
[2021-12-14] MEDS: DEXAMETHASONE 4 MG/ML VIAL IVP SCH (10:01)
[2021-12-14] MEDS: RIVAROXABAN 15 MG TAB PO SCH (10:01)
[2021-12-14] MEDS: methIMAzole 5 MG TAB PO SCH (10:01)
[2021-12-14] MEDS: METOPROLOL 25 MG TAB PO SCH ×2 (10:01→22:36)
[2021-12-14] MEDS: ASCORBIC ACID 500 MG TAB PO SCH (10:01)
[2021-12-14] MEDS: ZINC SULF 220 MG CAP PO SCH (10:01)
[2021-12-14] MEDS: AMIODARONE 200 MG TAB PO SCH (10:01)
[2021-12-14] MEDS: OXYBUTYNIN 5 MG TAB PO SCH (10:01)
[2021-12-14] MEDS: OSELTAMIVIR PHOSPHATE 75 MG CAP PO SCH ×2 (10:01→22:36)
[2021-12-14] MEDS ORDERED: CRUSHER, PILL MC ONE (10:23)
--- NOTE | 2021-12-14 10:54 | NUR ---
SCREEN FOR LOW MARTÍN SCALE AT RISK, CONTINUE TO FOLLOW PRESSURE ULCER PREVENTION INTERVENTIONS. -TURN AND REPOSITION PATIENT Q 2H, ASSIST IF NEEDED -ASSESS AND MONITOR SKIN CONDITION DURING POSITION CHANGES -OFFLOAD BILATERAL HEELS BY PLACING PILLOWS UNDER CALVES AT ALL TIMES, UNLESS OTHERWISE CONTRAINDICATED -PRESSURE REDISTRIBUTION BY PLACING PILLOWS AND OFFLOADING SACRALCOCCYX -KEEP SKIN CLEAN AND DRY AT ALL TIMES.
--- NOTE | 2021-12-14 11:30 | NUR ---
PT VISUALLY ASSESSED, CURRENTLY SLEEPING, NO SIGNS OF PAIN OR DISTRESS NOTED.
[2021-12-14 12:00] VITALS: BP 146/67
[2021-12-14] MEDS: REMDESIVIR. 100 MG in NACL 0.9% 100 ML IV SCH (12:19)
--- NOTE | 2021-12-14 13:00 | NUR ---
IV DRESSING APPEARED DAMP, AND INFILTRATION NOTED ON POSTERIOR SIDE OF EXTREMITY. IV REMOVED AND DRESSED. ATTEMPTED IV 2X WITHOUT SUCCESS. DROPPER TANK STORAGE NEAL WILL ATTEMPT AT LATER TIME.
--- NOTE | 2021-12-14 13:30 | NUR ---
NEW 22G IV ON RIGHT FOREARM INSERTED BY UNDER TRIMMER JOWIE AFTER 1X ATTEMPT. IV MEDICATIONS RESTARTED.
--- NOTE | 2021-12-14 15:30 | NUR ---
PT VISUALLY ASSESSED, CURRENTLY SLEEPING. NO SIGNS OF PAIN OR DISTRESS NOTED.
--- NOTE | 2021-12-14 15:45 | NUR ---
DC PLANNING PATIENT POSITIVE FOR INFLUENZA A & B AND IS COVID-19 POSITIVE THEREFORE SW OUTREACHED TO PATIENTS EMERGENCY CONTACT, RADHA ROBLES (SON) TO GATHER COLLATERAL INFORMATION. MR. ROBLES REPORTS PATIENT RESIDES WITH FAMILY AT THE ADDRESS LISTED ON FILE. IDENTIFIES HIMSELF AND GILBERTO HEATH (COUSIN) [phone] EMERGENCY CONTACT. MR ROBLES REPORTS PT VISITS WITH PCP REGULARLY; LAST VISIT SEPTEMBER 28. PT IS REPORTED TO BE MEDICATION COMPLIANT, FAMILY DENIES BARRIERS IN ACCESSING NEEDED MEDICATION. FAMILY RECEIVES MEDICATION FROM [facility] ON [facility] IN [place], WHEN NEEDED. FAMILY REPORTS ADEQUATE FOOD SOURCE. PATIENT REQUIRES ASSISTANCE WITH ADL'S AND IS REPORTED TO BE TOTAL CARE. PATIENT UTILIZES DME;WC, BEDSIDE COMMODE & SHOWER CHAIR.MR. ROBLES REPORTS HE IS PATIENTS COMMISSIONED SALES ASSOCIATE CAREGIVER. FAMILY DENIES HX OF SNF PLACEMENT AND DENIES HX OF HOME HEALTH SERVICES. FAMILY DENIES MENTAL HLTH HX. MR. ROBLES REPORTS DC PLAN IS FOR PATIENT TO RETURN HOME WHEN CLINICALLY STABLE AND AID IN REQUIRED CARE. SW INQUIRED ON ADDITIONAL RESOURCES NEEDED, FAMILY DECLINED AT THIS TIME.
[2021-12-14 16:00] VITALS: BP 116/68
--- NOTE | 2021-12-14 17:30 | NUR ---
PT VISUALLY ASSESSED, CURRENTLY SLEEPING. NO SIGNS OF PAIN OR DISTRESS NOTED.
--- NOTE | 2021-12-14 19:30 | NUR ---
RECEIVED REPORT FROM DAY SHIFT NURSE FOR CONTINUITY OF CARE. PATIENT IS A&O X 1-2, SPEAKS FARSY. PATIENT IS ON ROOM AIR, BREATHING IS NORMAL WITH SYMMETRICAL RISE AND FALL OF CHEST. IV IS 22G RFA, RUNNING 5ML TKO. BED IS IN LOWEST POSITION, WHEELS LOCKED, CALL LIGHT IN PLACE. WILL CONTINUE TO OBSERVE PATIENT.
--- NOTE | 2021-12-14 19:31 | NUR ---
ENDORSED PT TO NIGHTSHIFT NURSE YESSICA FOR CONTINUITY OF CARE. PT IN STABLE CONDITION.
[2021-12-14 20:00] VITALS: BP 119/75
--- NOTE | 2021-12-14 22:50 | NUR ---
GAVE MEDICATIONS TO PATIENT. ATTEMPTED USING MERCHANDISE ADJUSTMENT CLERK SERVICE FOR FARSI LANGUAGE (NAME: MATT, ID# [id number]). MERCHANDISE ADJUSTMENT CLERK WAS UNABLE TO UNDERSTAND PATIENT AND PATIENT DID NOT SEEM TO ACKNOWLEDGE MERCHANDISE ADJUSTMENT CLERK. PATIENT HAD VOIDED AND WAS CHANGED BY CARTON MARKER MACHINE AND MYSELF. BREATHING WAS NORMAL WITH SYMMETRICAL RISE AND FALL OF CHEST. WILL CONTINUE TO OBSERVE PATIENT.
--- NOTE | 2021-12-15 01:30 | NUR ---
LOOKED IN ON PATIENT PATIENT WAS SLEEPING. BREATHING WAS NORMAL WITH SYMMETRICAL RISE AND FALL OF CHEST. IVF WAS RUNNING 5ML TKO. WILL CONTINUE TO OBSERVE PATIENT.
--- NOTE | 2021-12-15 04:00 | NUR ---
LOOKED IN ON PATIENT. PATIENT OPENED HER EYES AND STARRED AT ME BUT DID NOT SPEAK. PATIENT'S BREATHING WAS NORMAL WITH SYMMETRICAL RISE AND FALL OF CHEST. WILL CONTINUE TO OBSERVE.
--- NOTE | 2021-12-15 07:30 | NUR ---
ENDORSED TO DAY SHIFT NURSE FEDERICA FOR CONTINUITY OF CARE. PATIENT IS STABLE.
[2021-12-15 07:36] LABS: ANION GAP 11.3 (8-16); CARBON DIOXIDE 29.3 mmol/L (21-32); CHLORIDE 106 mmol/L (98-107); CREATININE 0.6 mg/dL (0.6-1.3); GLUCOSE 111 mg/dL (74-106); POTASSIUM 4.6 mmol/L (3.5-5.1); SODIUM SERUM 142 mmol/L (136-145); UREA NITROGEN, BLOOD 24 mg/dL (7-18)
[2021-12-15 07:56] LABS: ANION GAP 13.2 (8-16); ASPARTATE AMINOTRANSFERASE 32 U/L (15-37); CARBON DIOXIDE 28.4 mmol/L (21-32); CHLORIDE 106 mmol/L (98-107); CREATININE 0.7 mg/dL (0.6-1.3); GLUCOSE 110 mg/dL (74-106); POTASSIUM 4.6 mmol/L (3.5-5.1); SODIUM SERUM 143 mmol/L (136-145); TOTAL BILIRUBIN 0.5 mg/dL (0.0-1.0); UREA NITROGEN, BLOOD 22 mg/dL (7-18)
[2021-12-15 08:00] VITALS: BP 116/68
[2021-12-15] MEDS: AZITHROMYCIN 500 MG in DEXTROSE 5% 250 ML IV SCH (08:39)
[2021-12-15] MEDS: DEXAMETHASONE 4 MG/ML VIAL IVP SCH (08:40)
[2021-12-15] MEDS: METOPROLOL 25 MG TAB PO SCH ×2 (08:41→21:00)
[2021-12-15] MEDS: AMIODARONE 200 MG TAB PO SCH (08:41)
[2021-12-15] MEDS: OXYBUTYNIN 5 MG TAB PO SCH (08:41)
[2021-12-15] MEDS: OSELTAMIVIR PHOSPHATE 75 MG CAP PO SCH ×2 (08:41→21:24)
[2021-12-15] MEDS: ASCORBIC ACID 500 MG TAB PO SCH (08:42)
[2021-12-15] MEDS: methIMAzole 5 MG TAB PO SCH (08:42)
[2021-12-15] MEDS: ZINC SULF 220 MG CAP PO SCH (08:43)
[2021-12-15] MEDS: RIVAROXABAN 15 MG TAB PO SCH (08:43)
[2021-12-15] MEDS: REMDESIVIR. 100 MG in NACL 0.9% 100 ML IV SCH (12:02)
--- NOTE | 2021-12-15 14:33 | NUR ---
12/15/21 RD INITIAL ASSESSMENT COMPLETED PLEASE REFER TO NUTRITION ASSESSMENT UNDER CARE ACTIVITY FOR ESTIMATED NUTRITIONAL NEEDS. 1. RECOMMEND PUREE CCHO 60GM DIET TOLERATED -RD RECOMMENDS GLUCERNA BID FOR NUTRITION SUPPORT. 2. MONITOR NUTRITION-RELATED LAB VALUES AND PO INTAKE 3. RD TO FOLLOW-UP 3-5 DAYS, MODERATE RISK REVIEWED BY DARIUS ALVAREZ RD
[2021-12-15 16:00] VITALS: BP 122/66
--- NOTE | 2021-12-15 19:40 | NUR ---
WAS ENDORSED TO THIS PATIENT BY FEDERICA LUGO. PATIENT WAS STABLE DURING SHIFT REPORT. PATIENT DOES NOT SPEAK ROMANSH AND PUBLIC RELATIONS WRITER ID [id number] TRANSLATED THE CARE PROVIDED FOR PATIENT. PATIENT WAS IN BED ALERT AND MOVED HER EYES WHEN HER NAME WAS CALLED. NO NOTED S/S OF PAIN/DISCOMFORT. NO NOTED RESPIRATORY DISTRESS. NO NOTED S/S OF COVID 19 WERE PRESENT AT THIS TIME. VITAL SIGN SHOW NOT ELEVATED TEMPERATURE. BED WAS AT ITS LOWEST LEVEL. SIDE RAILS X 4 FOR SAFETY. CALL LIGHT WITHIN REACH FOR MENTAL STIMULATION. NURSING WILL FREQUENT THIS ROOM FOR ANTICIPATED NEEDS. [email or web address]
[2021-12-15 20:00] VITALS: BP 94/46
--- NOTE | 2021-12-15 20:00 | NUR ---
REVIEWED PLAN OF CARE WITH BELLO HELTON LVN. [email or web address]
[2021-12-15] MEDS ORDERED: CRUSHER, PILL MC ONE (21:00)
--- NOTE | 2021-12-15 21:40 | NUR ---
NURSING NOTED DURING ROUNDS IN BED AWAKE. NO NOTED S/S OF PAIN/DISCOMFORT. NURSING PUT BACK ON NASAL CANNULA AT 2 LITERS PER RT VERIFICATION IF SHE SHOULD BE ON ROOM AIR. NO NOTED S/S OF RESPIRATORY DISTRESS. CALL LIGHT WITHIN REACH BUT FOR MAENTAL STIMULATION TO TV. NURSING WILL FREQUENT THIS ROOM FOR ANTICIPATED NEEDS. [email or web address]
--- NOTE | 2021-12-15 22:45 | NUR ---
NO NOTED IVPB COVERAGE FOR DAVID LUGO. [email or web address]
--- NOTE | 2021-12-15 23:28 | NUR ---
PATIENT IN BED ASLEEP WITHOUT INCIDENT. NO NOTED S/S OF PAIN. NO NOTED S/S OF RESPIRATORY DISTRESS. CALL LIGHT WITHIN REACH FOR MENTAL STIMULATION FROM TV. PATIENT CHEST NOTED RISING AND FALLING WITHOUT INCIDENT. NURSINGG WILL FREQUENT THIS ROOM FOR ANTICIPATED NEEDS. [email or web address]
--- NOTE | 2021-12-16 01:24 | NUR ---
PATIENT IN BED ASLEEP OFF AND ON. CHEST NOTED RISING AND FALLING WITHOUT INCIDENT. [email or web address]
--- NOTE | 2021-12-16 03:45 | NUR ---
PATIENT IS EASE TO AROUSE WHEN NAME IS CALLED. NO NOTED S/S OF PAIN. NO NOTED S/S OF RESPIRATORY DISTRESS. PATIENT REMAINS CLEAN AND DRY. SIDE RAILS UP X 3 FOR SAFETY AND COMFORT. BED AT LOWEST LEVEL. SEMI [place]O POSITION. CALL LIGHT WITHIN REACH FOR MENTAL STIMULATION FOR TV. NURSING WILL FREQUENT THIS ROOM FOR SAFETY AND ANTICIPATED NEEDS. [email or web address]
[2021-12-16 04:00] VITALS: BP 101/50
--- NOTE | 2021-12-16 05:27 | NUR ---
PATIENT WAS CLEANED AND REPOSITIONED. PATIENT TOLERATED IT WELL. NO FACIAL GRIMACING TO INDICATE PAIN/DISCOMFORT. NO NOTED S/S OF RESPIRATORY DISTRESS. BED AT THE LOWEST LEVEL IN THE SEMI [place]GAD[place]O POSITION. NO S/S OF COVID 19 AND NO SYMPTOM OF FLU. NURSING WILL FREQUENT THIS ROOM FOR ANTICIPATED ASSISTANCE. [email or web address]
[2021-12-16 07:09] LABS: BASOPHILS % (AUTO) 0.1 % (0.0-2.0); HEMATOCRIT 40.2 % (36-48); HEMOGLOBIN 13.3 g/dL (12.0-16.0); LYMPHOCYTES # (AUTO) 1.6 K/uL (2.5-16.5); LYMPHOCYTES % (AUTO) 21.7 % (20.5-51.1); MEAN CORPUSCULAR HEMOGLOBIN 28 pg (27-31); MEAN CORPUSCULAR HGB CONC 33 g/dL (33-37); MEAN CORPUSCULAR VOLUME 84.6 fL (80-94); MONOCYTES # (AUTO) 0.4 K/uL (0.8-1.0); MONOCYTES % (AUTO) 5.8 % (1.7-9.3); NEUTROPHILS # (AUTO) 5.5 K/uL (1.8-7.7); NEUTROPHILS % (AUTO) 72.4 % (42.2-75.2); PLATELET COUNT (AUTO) 171 K/uL (140-450); RED BLOOD CELL COUNT(AUTO) 4.75 MIL/uL (4.20-5.40); RED CELL DISTRIBUTION WIDTH 15.1 % (11.6-13.7); WHITE BLOOD COUNT (AUTO) 7.6 K/uL (4.8-10.8)
[2021-12-16 07:28] LABS: ANION GAP 11.8 (8-16); CARBON DIOXIDE 25.2 mmol/L (21-32); CHLORIDE 102 mmol/L (98-107); CREATININE 0.6 mg/dL (0.6-1.3); GLUCOSE 128 mg/dL (74-106); SODIUM SERUM 135 mmol/L (136-145); UREA NITROGEN, BLOOD 23 mg/dL (7-18)
--- NOTE | 2021-12-16 07:28 | NUR ---
ENDORSED PATIENT CARE TO FEDERICA RN FOR CONTINUITY OF CARE. PATIENT WAS STABLE AT THE CHANGE OF SHIFT. [email or web address]
[2021-12-16 08:00] VITALS: BP 111/79
[2021-12-16] MEDS: AZITHROMYCIN 500 MG in DEXTROSE 5% 250 ML IV SCH (08:31)
[2021-12-16] MEDS: DEXAMETHASONE 4 MG/ML VIAL IVP SCH (08:34)
[2021-12-16] MEDS: AMIODARONE 200 MG TAB PO SCH (08:35)
[2021-12-16] MEDS: OXYBUTYNIN 5 MG TAB PO SCH (08:35)
[2021-12-16] MEDS: METOPROLOL 25 MG TAB PO SCH ×2 (08:36→21:00)
[2021-12-16] MEDS: OSELTAMIVIR PHOSPHATE 75 MG CAP PO SCH ×2 (08:37→21:00)
[2021-12-16] MEDS: methIMAzole 5 MG TAB PO SCH (08:37)
[2021-12-16] MEDS: ZINC SULF 220 MG CAP PO SCH (08:38)
[2021-12-16] MEDS: ASCORBIC ACID 500 MG TAB PO SCH (08:38)
[2021-12-16] MEDS: RIVAROXABAN 15 MG TAB PO SCH (08:40)
--- NOTE | 2021-12-16 09:36 | NUR ---
PT RECEIVED FROM [facility] RT ON SUPPLEMENTAL OXYGEN 2 LITERS NASAL CANNULA. PT IS LAYING COMFORTABLY IN SEMIFOWLERS POSITION IN NO RESPIRATORY DISTRESS, WILL CONTINUE TO MONITOR PT.
[2021-12-16] MEDS ORDERED: TAM75 PO (10:46)
[2021-12-16] MEDS ORDERED: RIVA15TA1 PO (10:46)
[2021-12-16] MEDS ORDERED: DEC4 PO (10:46)
[2021-12-16] MEDS ORDERED: AMOX-999 PO (10:46)
[2021-12-16] MEDS: REMDESIVIR. 100 MG in NACL 0.9% 100 ML IV SCH (12:00)
[2021-12-16 12:17] LABS: BILIRUBIN,DIRECT 0.1 mg/dL (0.0-0.3); TOTAL BILIRUBIN 0.4 mg/dL (0.0-1.0)
--- NOTE | 2021-12-16 12:28 | NUR ---
PHYSICAL THERAPY CO-SIGN The Physical Therapy Progress Notes documented by Security Assurance Analyst have been reviewed. Reviewed/Co-Signed by: Mallorie Dye Documentation Done by: TAO VARGAS PTA Addendum: 12/16/21 at 1229 by Mallorie Dye PT Amended: Links added.
--- NOTE | 2021-12-16 16:59 | NUR ---
pt son [phone] called earlier and will speak w soc. c. tomorrow re d/c home.
--- NOTE | 2021-12-16 17:04 | NUR ---
DC PLANNING: CALLED [place] [phone] SPOKE WITH CHAUNCEY STATED STILL WORKING ON IT BUT ONCE THEY FINISHER THEY WILL DELIVER THE HOME O2 TO THE HOSPITAL BETWEEN 6-10 PM. CM TO FOLLOW
[2021-12-16 20:00] VITALS: BP 104/56
--- NOTE | 2021-12-16 20:00 | NUR ---
Patient's Plan of Care was discussed and reviewed with VALE MONSALVE:
--- NOTE | 2021-12-16 22:02 | NUR ---
[facility] DELIVERED THE OXYGEN TANK AND CONCENTRATOR. PATIENT SON WAS CALLED AND LEFT MESSAGE OF THE DELIVERY AND WOULD HE LIKE TO COME TO PICK MOTHER UP TO TAKE HOME. [email or web address]
--- NOTE | 2021-12-16 22:05 | NUR ---
MORGAN CALLED BACK AND INFORMED HE WOULD LIKE TO HIS MOTHER TO GET DISCHARGED TOMORROW BECAUSE OF THE RAIN. HE ALSO WANTS TO HAVE TRANSPORTATION SET UP TOMORROW. LEFT MESSAGE FOR PIPING DESIGNER EUGENE MAYES TO FOLLOW UP WITH THE FAMILY REGARDING POSSIBLE TRANSPORTATION. [email or web address]
--- NOTE | 2021-12-17 01:40 | NUR ---
PATIENT IN BED ASLEEP. KEPT CLEAN AND DRY. CHEST RISING AND FALLING WITHOUT DISTRESS. NO NOTED S/S OF COVID 19 NOR FLU AT THIS TIME. PATIENT IS REPOSITIONED EVERY TWO HOURS FOR PREVENTION OF PRESSURE ULCER. BED AT THE LOWEST LEVEL. SIDE RAILS UP X 3 FOR SAFETY AND COMFORT. CALL LIGHT WITHIN REACH FOR MENTAL STIMULATION TO THE TV. NO NOTED S/S OF PAIN/DISCOMFORT. NURSING WILL FREQUENT THIS ROOM FOR ASSISTANCE. [id number]
--- NOTE | 2021-12-17 03:53 | NUR ---
PATIENT IN BED ASLEEP WITHOUT INCIDENT. [email or web address]
[2021-12-17 04:00] VITALS: BP 132/71
--- NOTE | 2021-12-17 05:11 | NUR ---
PATIENT AWAKE IN BED NON VERBAL. KEPT CLEAN AND DRY. WILL ENDORSE TO AM SHIFT TO FOLLOW [facility] WITH SOCIAL SERVICE TO GETTING PATIENT TRANSPORTATION HOME. OXYGEN AND CONCENTRATOR AGE AT BEDSIDE. [email or web address]
--- NOTE | 2021-12-17 07:36 | NUR ---
ENDORSED PATIENT TO [facility] FOR CONTINUITY OF CARE. PATIENT WAS STABLE DURING CHANGE OF SHIFT. ENDORSED DISCHARGE PLANNING ORDERS FOR YESTERDAY BUT SON WANT TO HAVE TRANSPORTATION. OXYGEN ANS CONCENTRATOR IS AT BED SIDE. [email or web address]
[2021-12-17 08:00] VITALS: BP 132/78
[2021-12-17] MEDS: OXYBUTYNIN 5 MG TAB PO SCH (08:41)
[2021-12-17] MEDS: ZINC SULF 220 MG CAP PO SCH (08:42)
[2021-12-17] MEDS: OSELTAMIVIR PHOSPHATE 75 MG CAP PO SCH (08:42)
[2021-12-17] MEDS: AZITHROMYCIN 500 MG in DEXTROSE 5% 250 ML IV SCH (08:42)
[2021-12-17] MEDS: ASCORBIC ACID 500 MG TAB PO SCH (08:44)
[2021-12-17] MEDS: RIVAROXABAN 15 MG TAB PO SCH (08:44)
[2021-12-17] MEDS: AMIODARONE 200 MG TAB PO SCH (08:46)
[2021-12-17] MEDS: methIMAzole 5 MG TAB PO SCH (08:46)
[2021-12-17] MEDS: METOPROLOL 25 MG TAB PO SCH (08:47)
[2021-12-17] MEDS: DEXAMETHASONE 4 MG/ML VIAL IVP SCH (08:48)
--- NOTE | 2021-12-17 08:48 | NUR ---
PT WAS GIVEN THE SCHEDULED AM MEDICATIONS NOW, PARAMETER CHECKED, TOLERATED AND WILL MONITOR PT.
--- NOTE | 2021-12-17 11:30 | NUR ---
DISCHARGE PT TO HOME ACCOMPANIED BY SON, IV LINE REMOVED AND PT IS STABLE AT THIS TIME, PT'S SON WAS GIVEN TEACHINGS AND INSTRUCTIONS AND VERBALIZED UNDERSTANDING.
== END 2021-12-17 11:40 | disposition home or self-care (01) | DRG 871 ==
LOC: MED 01:55 → MTU 07:30
PROVIDERS: ADMIT Student in an Organized Health Care Education/Training Program; ATTEND Student in an Organized Health Care Education/Training Program
PROC: XW033E5 Introduction of Remdesivir Anti-infective into Peripheral Vein, Percutaneous Approach, New Technology Group 5 (ICD-10-PCS; principal; 2021-12-14)
DX: A41.9 Sepsis, unspecified organism (principal); G93.41 Metabolic encephalopathy; J96.01 Acute respiratory failure with hypoxia; N17.0 Acute kidney failure with tubular necrosis; U07.1 COVID-19; J12.82 Pneumonia due to coronavirus disease 2019; J11.1 Influenza due to unidentified influenza virus with other respiratory manifestations; I48.91 Unspecified atrial fibrillation; E05.90 Thyrotoxicosis, unspecified without thyrotoxic crisis or storm; E03.9 Hypothyroidism, unspecified; E78.5 Hyperlipidemia, unspecified; F03.90 Unspecified dementia, unspecified severity, without behavioral disturbance, psychotic disturbance, mood disturbance, and anxiety; E87.5 Hyperkalemia; Z86.73 Personal history of transient ischemic attack (TIA), and cerebral infarction without residual deficits; Z79.01 Long term (current) use of anticoagulants; Z79.1 Long term (current) use of non-steroidal anti-inflammatories (NSAID); Z79.891 Long term (current) use of opiate analgesic; Z79.899 Other long term (current) drug therapy
CPT/HCPCS: 36415; 36600; 71045; 80048; 80053; 80076; 83605; 83880; 84439; 84443; 84484; 85025; 87040; 87081; 92526; 93005; 96365; 96366; 96367; 96375; 97110; 97112; 97163-GP; 97530; 99291; J0456; J0696; J1100; J1160; J1644; J2543; J3370; J7060; Q0092